=== PATIENT | female | born 1995 | race Caucasian/White ===

== ENCOUNTER 2019-01-17 13:21 | Emergency (ER) | payer BC ==
[~2019-01-17] VITALS: Ht 154.9 cm; Wt 81.6 kg
[2019-01-17 13:52] VITALS: Ht 154.9 cm; Wt 81.6 kg
[2019-01-17 14:30] LABS: BASOPHIL % 0.6 % (0-2); PLATELET COUNT 220 x10^3mcL (130-400); RED CELL DISTRIBUTION WIDTH 12.7 % (11.5-14.5)
[2019-01-17 14:39] LABS: CALCIUM 8.9 mg/dL (8.5-10.1); CARBON DIOXIDE 28.2 mmol/L (21-32); CHLORIDE SERUM 107 mmol/L (98-107); CREATININE SERUM 0.7 mg/dL (0.6-1.0); GFR1 > 60 mL/min; GLUCOSE SERUM 103 mg/dL (74-106); POTASSIUM SERUM 3.7 mmol/L (3.5-5.1); SODIUM SERUM 142 mmol/L (136-145)
[2019-01-17 14:46] LABS: ALKALINE PHOSPHATASE 112 U/L (46-116); ALT/SGPT 55 U/L (14-59); AMYLASE 47 U/L (25-115); AST/SGOT 32 U/L (15-37); BILIRUBIN TOTAL 0.2 mg/dL (0.20-1.00); LIPASE 131 IU/L (73-393)
[2019-01-17 15:08] VITALS: BP 109/63
== END 2019-01-17 15:08 | disposition home or self-care (01) ==
LOC: ED 13:21
PROVIDERS: Emergency Medicine
DX: R10.32 Left lower quadrant pain (principal); I10 Essential (primary) hypertension
CPT/HCPCS: 36415; J1885; Q0162